=== PATIENT | female | born 1980 | race Caucasian/White ===

== ENCOUNTER → 2017-09-05 | Outpatient (CLI) | payer BC | END | disposition home or self-care (01) | LOC: LABWHC1 08:56 | PROVIDERS: ATTEND Otolaryngology | DX: J30.89 Other allergic rhinitis (principal) | CPT/HCPCS: 36415 ==

== ENCOUNTER 2022-02-15 08:15 | Observation (INO) | payer BC ==
[2022-02-15] MEDS ORDERED: HYDROmorphone 0.5 MG/0.5 ML SYRINGE IVP STA (08:34)
[2022-02-15] MEDS ORDERED: ONDANSETRON 4 MG/2 ML VIAL IVP PRN (08:41)
[2022-02-15] MEDS ORDERED: NALOXONE 0.4 MG/ML 1 ML VIAL IV PRN (08:41)
--- NOTE | 2022-02-15 08:41 | ED ---
Abdominal Pain HPI - General Chief Complaint: Abdominal Pain Stated Complaint: possible appendicitis Time Seen by Provider: 02/15/22 08:21 Source: patient, EMS, RN notes reviewed Mode of arrival: EMS Limitations: no limitations - History of Present Illness Initial Comments: This a 41-year-old female presents emergency Department as a transfer from [facility] for possible appendicitis. Patient states she woke up in the middle of the night with mid epigastric pain she stated that the pain increased along with nausea vomiting. Patient states that she had a CAT scan which showed evidence of appendicitis. Patient states that she was given Unasyn, pain meds. She still complains of moderate abdominal pain but states her nausea has improved no reported fever. No prior abdominal surgeries. Review of Systems ROS Statement: Those systems with pertinent positive or pertinent negative responses have been documented in the HPI. ROS Other: All systems not noted in ROS Statement are negative. Past Medical History Past Medical History: No Reported History History of Any Multi-Drug Resistant Organisms: None Reported Past Surgical History: Hysterectomy, Tubal Ligation Smoking Status: Vaper Past Alcohol Use History: Occasional Past Drug Use History: None Reported General Exam Limitations: no limitations General appearance: alert, in no apparent distress Head exam: Present: atraumatic, normocephalic, normal inspection Eye exam: Present: normal appearance, PERRL, EOMI. Absent: scleral icterus, conjunctival injection, periorbital swelling ENT exam: Present: normal exam, normal oropharynx, mucous membranes moist Neck exam: Present: normal inspection. Absent: tenderness, meningismus, lymphadenopathy Respiratory exam: Present: normal lung sounds bilaterally. Absent: respiratory distress, wheezes, rales, rhonchi, stridor Cardiovascular Exam: Present: regular rate, normal rhythm, normal heart sounds. Absent: systolic murmur, diastolic murmur, rubs, gallop, clicks GI/Abdominal exam: Present: soft, tenderness (Moderate mid abdominal with right lower quadrant), normal bowel sounds. Absent: distended, guarding, rebound, rigid Back exam: Absent: CVA tenderness (R), CVA tenderness (L) Neurological exam: Present: alert Skin exam: Present: warm, dry, intact, normal color. Absent: rash Course Vital Signs 02/15/22 08:18 Temperature 98.3 F Pulse Rate 72 Respiratory 18 Rate Blood Pressure 157/77 O2 Sat by Pulse 98 Oximetry Medical Decision Making - Medical Decision Making I did review prior studies, laboratory results patient will be continuing current antibiotics case discussed with Dr. Ramey patient will continue fluid hydration, be kept NPO, for observation and possible surgery. Disposition Clinical Impression: Abdominal pain, Nausea & vomiting, Appendicolith, Appendicitis Disposition: ADMITTED IP TO THIS HOSP Condition: Fair Referrals: Natacha Jeffries MD [Primary Care Provider] - 1-2 days Time of Disposition: 08:41
[2022-02-15] MEDS: SODIUM CHLORIDE 0.9% 1,000 ML IV SCH ×3 (09:01→16:38)
[2022-02-15] MEDS: PANTOPRAZOLE 40 MG/10 ML VIAL IV SCH (09:03)
[2022-02-15 09:08] LABS: Basophils % (A) 0 %; Eosinophils # (A) 0.1 k/uL (0-0.7); Eosinophils % (A) 1 %; HCT 38.4 % (34.0-46.0); HGB 12.4 gm/dL (11.4-16.0); Lymphocytes # (A) 0.5 k/uL (1.0-4.8); Lymphocytes % (A) 3 %; MCH 30.1 pg (25.0-35.0); MCHC 32.2 g/dL (31.0-37.0); MCV 93.3 fL (80.0-100.0); Mean Platelet Volume 6.6; Monocytes # (A) 0.5 k/uL (0-1.0); Monocytes % (A) 3 %; Neutrophils # (A) 14.5 k/uL (1.3-7.7); Neutrophils % (A) 92 %; Platelet Count 371 k/uL (150-450); RBC 4.12 m/uL (3.80-5.40); RDW 15.4 % (11.5-15.5); WBC 15.7 k/uL (3.8-10.6)
[2022-02-15 09:18] LABS: ALT 39 U/L (4-34); AST 29 U/L (14-36); African American GFR (CKD) >90 (>60 ml/min/1.73 sqM); Albumin 4.4 g/dL (3.5-5.0); Alkaline Phosphatase 81 U/L (38-126); Anion Gap 6 mmol/L; Blood Urea Nitrogen 12 mg/dL (7-17); Calcium 8.6 mg/dL (8.4-10.2); Carbon Dioxide 25 mmol/L (22-30); Chloride 107 mmol/L (98-107); Glucose 109 mg/dL (74-99); Non-African American GFR(CKD) >90 (>60 ml/min/1.73 sqM); Potassium 4.3 mmol/L (3.5-5.1); Sodium 138 mmol/L (137-145); Total Bilirubin 0.4 mg/dL (0.2-1.3); Total Protein 7.2 g/dL (6.3-8.2)
[2022-02-15] MEDS: HYDROmorphone 0.5 MG/0.5 ML SYRINGE IVP PRN ×4 (11:28→21:28)
[2022-02-15] MEDS: AMPICILLIN-SULBACTAM 3 GM in SODIUM CHLORIDE 0.9% 100 ML IVPB SCH ×2 (11:56→21:26)
[2022-02-15] MEDS: ACETAMINOPHEN IV (For NPO) 1,000 MG in EMPTY BAG 1 BAG IVPB SCH ×3 (12:44→23:28)
--- NOTE | 2022-02-15 12:55 | P.GSHP ---
History of Present Illness H&P Date: 02/15/22 CHIEF COMPLAINT: Abdominal pain HISTORY OF PRESENT ILLNESS: This is a 41-year-old female who presented to the emergency department as a transfer from [facility] for possible appendicitis. Patient reports that she has been having abdominal pain that started last night. She states that initially it started in her upper abdomen and had radiated to her back and then moved down towards the right lower quadrant. She was having nausea and vomiting. She graded her pain about a 9 out of 10. Denies any fever. Does report having some chills and sweats. At [place] she had a computed tomography scan without contrast that reported can't exclude appendicitis. Minimal thickening of the appendix noted. No surrounding inflammatory stranding noted. White count is not elevated at 15. She does complain of nausea. Pain is controlled with pain medication. Past surgical history includes a hysterectomy and tubal ligation. She's currently on antibiotics. PAST MEDICAL HISTORY: Heart murmur PAST SURGICAL HISTORY: See list. MEDICATIONS: See list. ALLERGIES: See list. SOCIAL HISTORY: No illicit drug use. REVIEW OF SYSTEMS: CONSTITUTIONAL: Denies fever or chills. HEENT: Denies blurred vision, vision changes, or eye pain. Denies hemoptysis CARDIOVASCULAR: Denies chest pain or pressure. RESPIRATORY: No shortness of breath. GASTROINTESTINAL: See HPI for pertinent findings HEMATOLOGIC: Denies bleeding disorders. GENITOURINARY: Denies any blood in urine or increased urinary frequency. SKIN: Denies pruitis. Denies rash. PHYSICAL EXAM: VITAL SIGNS: Reviewed GENERAL: Well-developed in no acute distress. HEENT: No sclera icterus. Extraocular movements grossly intact. Moist buccal mucosa. Head is atraumatic, normocephalic. No nasal drainage. ABDOMEN: Soft. Nondistended. Tenderness to palpation in the right lower quadrant NEUROLOGIC: Alert and oriented. Cranial nerves II through XII grossly intact. LABORATORY DATA: WBC is 15.7 Hgb 12.4 plt 371 Sodium 138 potassium 4.3 creatinine 0.70 AST 29 ALT 39 alk phos 81 total bilirubin 0.4 Lipase at [place] normal IMAGING: ASSESSMENT: 1. Upper abdominal pain has now moved down to the right lower quadrant with minimal thickening of the appendix noted on computed tomography scan. Can't exclude appendicitis 2. Nausea and vomiting 3. Leukocytosis PLAN: -Patient scheduled for Laparoscopic appendectomy tomorrow, 02/16/[address] Ramey -Continue IV antibiotics -Add IV Tylenol and Toradol for pain -Continue IV fluids -Continue antiemetics as needed -Consult medicine service for medical management -GI prophylaxis Protonix and DVT prophylaxis subcu Heparin Physician Service Operations Manager note has been reviewed by physician. Signing provider agrees with the documented findings, assessment, and plan of care. Past Medical History Past Medical History: No Reported History History of Any Multi-Drug Resistant Organisms: None Reported Past Surgical History: Hysterectomy, Tubal Ligation Past Anesthesia/Blood Transfusion Reactions: No Reported Reaction Past Psychological History: No Psychological Hx Reported Smoking Status: Vaper Past Alcohol Use History: Occasional Past Drug Use History: None Reported Medications and Allergies Home Medications Medication Instructions Recorded Confirmed Type Azelastine HCl [Astepro] 1 spray EA NOSTRIL BID PRN 02/15/22 02/15/22 History Fluticasone Nasal [place] [Flonase 2 spray EA NOSTRIL DAILY PRN 02/15/22 02/15/22 History Nasal [place]] Saxenda 18mg/3ml See Taper SQ DIRECTED 02/15/22 02/15/22 History busPIRone HCl [Buspar] 5 mg PO BID 02/15/22 02/15/22 History traZODone HCL [Desyrel] 50 mg PO HS 02/15/22 02/15/22 History Allergies Allergy/AdvReac Type Severity Reaction Status Date / Time amoxicillin AdvReac Unknown Verified 02/15/22 09:00 Childhood cephalexin [From Keflex] AdvReac Unknown Verified 02/15/22 09:00 Childhood clarithromycin [From Biaxin] AdvReac Unknown Verified 02/15/22 09:00 Childhood Penicillins AdvReac Unknown Verified 02/15/22 09:00 Childhood Sulfa (Sulfonamide AdvReac Unknown Verified 02/15/22 09:00 Antibiotics) Childhood Surgical - Exam Vital Signs Temp Pulse Resp BP Pulse Ox 98.3 F 72 18 157/77 98 02/15/22 08:18 02/15/22 08:18 02/15/22 08:18 02/15/22 08:18 02/15/22 08:18 Results - Labs 02/15/22 08:58 02/15/22 08:58 Abnormal Lab Results - Last 24 Hours (Table) 02/15/22 02/15/22 Range/Units 08:58 08:58 WBC 15.7 H (3.8-10.6) k/uL Neutrophils # 14.5 H (1.3-7.7) k/uL Lymphocytes # 0.5 L (1.0-4.8) k/uL Glucose 109 H (74-99) mg/dL ALT 39 H (4-34) U/L Diabetes panel 02/15/22 Range/Units 08:58 Sodium 138 (137-145) mmol/L Potassium 4.3 (3.5-5.1) mmol/L Chloride 107 (98-107) mmol/L Carbon Dioxide 25 (22-30) mmol/L BUN 12 (7-17) mg/dL Creatinine 0.70 (0.52-1.04) mg/dL Glucose 109 H (74-99) mg/dL Calcium 8.6 (8.4-10.2) mg/dL AST 29 (14-36) U/L ALT 39 H (4-34) U/L Alkaline Phosphatase 81 (38-126) U/L Total Protein 7.2 (6.3-8.2) g/dL Albumin 4.4 (3.5-5.0) g/dL Calcium panel 02/15/22 Range/Units 08:58 Calcium 8.6 (8.4-10.2) mg/dL Albumin 4.4 (3.5-5.0) g/dL Pituitary panel 02/15/22 Range/Units 08:58 Sodium 138 (137-145) mmol/L Potassium 4.3 (3.5-5.1) mmol/L Chloride 107 (98-107) mmol/L Carbon Dioxide 25 (22-30) mmol/L BUN 12 (7-17) mg/dL Creatinine 0.70 (0.52-1.04) mg/dL Glucose 109 H (74-99) mg/dL Calcium 8.6 (8.4-10.2) mg/dL Adrenal panel 02/15/22 Range/Units 08:58 Sodium 138 (137-145) mmol/L Potassium 4.3 (3.5-5.1) mmol/L Chloride 107 (98-107) mmol/L Carbon Dioxide 25 (22-30) mmol/L BUN 12 (7-17) mg/dL Creatinine 0.70 (0.52-1.04) mg/dL Glucose 109 H (74-99) mg/dL Calcium 8.6 (8.4-10.2) mg/dL Total Bilirubin 0.4 (0.2-1.3) mg/dL AST 29 (14-36) U/L ALT 39 H (4-34) U/L Alkaline Phosphatase 81 (38-126) U/L Total Protein 7.2 (6.3-8.2) g/dL Albumin 4.4 (3.5-5.0) g/dL
[2022-02-15] MEDS ORDERED: AZELASTINE 137MCG/SPRAY EA NOSTRIL PRN (16:23)
[2022-02-15] MEDS ORDERED: FLUTICASONE 50MCG/SPRAY NASAL 16GM EA NOSTRIL PRN (16:23)
[2022-02-15] MEDS: KETOROLAC 15 MG/ML 1 ML VIAL IVP PRN (17:20)
--- NOTE | 2022-02-15 19:09 | CONS ---
CONSULTATION DATE OF SERVICE: 02/15/2022 REASON FOR CONSULTATION: Advice regarding elevated WBC and other medical issues, requested by Surgery. HISTORY OF PRESENT ILLNESS: This 41-year-old woman who was previously healthy was complaining of abdominal pain. Patient went to an outside hospital. White count was elevated and because of suspicion of acute appendicitis, patient was sent to [facility]. White count is 15.7 at this time. The pain actually started initially in the epigastric area and subsequently localized in the right lower quadrant area. There is no history of any fever, rigor or chills. PAST MEDICAL HISTORY: No significant cardiorespiratory illness except vaping. MEDICATIONS: Home medications are reviewed and include Desyrel. Doses and the rest of the medications are reviewed. ALLERGIES: REVIEWED. They include AMOXICILLIN. FAMILY HISTORY: No history of heart disease or strokes in the family. SOCIAL HISTORY: Vaping. Occasional alcohol. REVIEW OF SYSTEMS: Fourteen-point review of systems negative except as mentioned earlier. PHYSICAL EXAMINATION: Pulse 69, blood pressure 112/70, respiration 18. HEENT: Conjunctivae normal. NECK: No jugular venous distention. CARDIOVASCULAR: S1, S2 muffled. RESPIRATION: Breath sounds diminished at the bases. ABDOMEN: Soft. No guarding. No rigidity. Mild tenderness in the right lower quadrant. No ascites. No mass palpable. LEGS: No edema. No swelling. NERVOUS SYSTEM: Higher functions as mentioned earlier. Moves all 4 limbs. No focal motor or sensory deficit. SKIN: No ulcer, rash, bleeding. JOINTS: No active deforming arthropathy. LABS: Reviewed. WBC 15.7. ASSESSMENT: 1. Right lower quadrant abdominal pain; possible acute appendicitis. 2. Increased white count. 3. Mild elevation of ALT. RECOMMENDATIONS AND DISCUSSION: In this 41-year-old woman who presented with features of lower abdominal pain was started on empiric antibiotics. I would recommend continuing the pain medications, IV fluids. Closely follow with Dr. Ramey. Prognosis guarded because of multiple complex medical issues. Further recommendations to follow. MMODL / IJN: [id number] /
[2022-02-15] MEDS: HEPARIN SODIUM,PORCINE/PF 5,000 UNIT/0.5 ML SYRINGE SQ SCH (21:28)
[2022-02-15] MEDS: busPIRone HCl 5 MG TAB PO SCH (21:28)
[2022-02-15] MEDS: traZODone HCL 50 MG TAB PO SCH (22:02)
[2022-02-16] MEDS: HYDROmorphone 0.5 MG/0.5 ML SYRINGE IVP PRN ×6 (01:45→23:45)
[2022-02-16] MEDS: AMPICILLIN-SULBACTAM 3 GM in SODIUM CHLORIDE 0.9% 100 ML IVPB SCH ×2 (03:18→12:08)
[2022-02-16] MEDS: ACETAMINOPHEN IV (For NPO) 1,000 MG in EMPTY BAG 1 BAG IVPB SCH (05:03)
[2022-02-16] MEDS: SODIUM CHLORIDE 0.9% 1,000 ML IV SCH ×3 (05:04→14:27)
[2022-02-16 06:07] LABS: Basophils # (A) 0.1 k/uL (0-0.2); Basophils % (A) 0 %; Eosinophils # (A) 0.1 k/uL (0-0.7); Eosinophils % (A) 1 %; HCT 35.2 % (34.0-46.0); HGB 11.4 gm/dL (11.4-16.0); Lymphocytes # (A) 0.8 k/uL (1.0-4.8); Lymphocytes % (A) 4 %; MCH 30.6 pg (25.0-35.0); MCHC 32.4 g/dL (31.0-37.0); MCV 94.5 fL (80.0-100.0); Monocytes # (A) 0.3 k/uL (0-1.0); Monocytes % (A) 2 %; Neutrophils # (A) 16.3 k/uL (1.3-7.7); Neutrophils % (A) 93 %; Platelet Count 296 k/uL (150-450); RBC 3.73 m/uL (3.80-5.40); RDW 15.5 % (11.5-15.5); WBC 17.6 k/uL (3.8-10.6)
[2022-02-16 06:25] LABS: ALT 27 U/L (4-34); AST 26 U/L (14-36); African American GFR (CKD) >90 (>60 ml/min/1.73 sqM); Albumin 3.5 g/dL (3.5-5.0); Albumin/Globulin Ratio 1.4; Alkaline Phosphatase 87 U/L (38-126); Anion Gap 5 mmol/L; Blood Urea Nitrogen 7 mg/dL (7-17); Calcium 7.8 mg/dL (8.4-10.2); Carbon Dioxide 25 mmol/L (22-30); Chloride 102 mmol/L (98-107); Globulin 2.5 g/dL; Glucose 98 mg/dL (74-99); Non-African American GFR(CKD) 86 (>60 ml/min/1.73 sqM); Potassium 3.7 mmol/L (3.5-5.1); Sodium 132 mmol/L (137-145); Total Bilirubin 0.8 mg/dL (0.2-1.3)
[2022-02-16] MEDS: HEPARIN SODIUM,PORCINE/PF 5,000 UNIT/0.5 ML SYRINGE SQ SCH ×2 (07:29→20:37)
[2022-02-16] MEDS: busPIRone HCl 5 MG TAB PO SCH ×2 (08:26→20:37)
[2022-02-16] MEDS: KETOROLAC 15 MG/ML 1 ML VIAL IVP PRN ×2 (08:26→23:28)
[2022-02-16] MEDS: PANTOPRAZOLE 40 MG/10 ML VIAL IV SCH (08:26)
[2022-02-16] MEDS ORDERED: IV FLUID CONTINUATION 1,000 ML IV ONE ×2 (11:34)
[2022-02-16] MEDS ORDERED: LACTATED RINGERS 1,000 ML IV ONE ×2 (11:37)
[2022-02-16] MEDS ORDERED: HEPARIN SODIUM,PORCINE 5,000 UNIT/ML 1 ML VIAL SQ ONE (11:45)
[2022-02-16] MEDS ORDERED: fentaNYL (PF) 50 MCG/ML 2 ML AMP ONE (11:51)
[2022-02-16] MEDS ORDERED: KETOROLAC 15 MG/ML 1 ML VIAL ONE (11:51)
[2022-02-16] MEDS ORDERED: MIDAZOLAM 2 MG/2 ML VIAL ONE (11:51)
[2022-02-16] MEDS ORDERED: LIDOCAINE 2% INJ 20 MG/ML (2 ML VIAL) ONE (11:51)
[2022-02-16] MEDS ORDERED: GLYCOPYRROLATE 0.2 MG/ML 2 ML VIAL ONE (11:51)
[2022-02-16] MEDS ORDERED: ROCURONIUM 10 MG/ML (5 ML VIAL) IV ONE (11:51)
[2022-02-16] MEDS ORDERED: NEOSTIGMINE 1 MG/ML 10 ML VIAL ONE (11:51)
[2022-02-16] MEDS ORDERED: SUCCINYLCHOLINE CHLORIDE 100 MG/5 ML SYR IV ONE (11:51)
[2022-02-16] MEDS ORDERED: PROPOFOL 10 MG/ML 20 ML VIAL IV ONE (11:51)
[2022-02-16] MEDS ORDERED: BUPIVACAIN-EPI 0.25%-1:200,000 30 ML VIAL SQ ONE (12:16)
--- NOTE | 2022-02-16 12:30 | P.OP ---
Date of Procedure: 02/16/22 Preoperative Diagnosis: Acute appendicitis Postoperative Diagnosis: Acute appendicitis Procedure(s) Performed: Laparoscopic appendectomy Anesthesia: GILMA Surgeon: Sameer Ramey Pathology: other (Appendix) Condition: stable Disposition: PACU Description of Procedure: HarThe patient's placed on the operating table in the supine position. The patient received general anesthesia. The abdomen was prepped and draped in the usual sterile fashion. The skin was anesthetized 1% local Xylocaine at the trocar sites. Using an 11 blade the skin was incised at the umbilicus. The umbilicus was grasped with a Nickie clamp and then a Veress needle was placed into the peritoneal cavity. Position of the Veress needle was confirmed with positive drop test. After adequate insufflation a 5 mm trocar was placed into the peritoneal cavity. The abdomen was further insufflated. And then the l aparoscope was placed in the peritoneal cavity. Next a 5 mm trocar was placed in the midline suprapubic position. And then a 10 mm trocar was placed in the midline epigastric position. The patient was rotated with the right side up and in Trendelenburg. The appendix was visualized. The appendix appeared to be inflamed. The appendix was grasped and then using the Harmonic scissors the mesoappendix was divided. A PDS Endoloop was then placed around the base of the appendix. And then the appendix was divided using Harmonic scissors. The appendix was placed into an Endo Catch and brought out through the 10 mm trocar site. The abdomen was irrigated. There is no bleeding seen. The trochars withdrawn. The skin was closed interrupted 3-0 Monocryl suture. Dermabond dressing was applied. Patient was sent to recovery room in stable condition.
[2022-02-16] MEDS ORDERED: HYDROmorphone 1 MG/ML 1 ML SYRINGE IVP PRN (12:31)
[2022-02-16] MEDS ORDERED: ONDANSETRON 4 MG TAB PO PRN (12:31)
[2022-02-16] MEDS: HYDROmorphone 0.5 MG/0.5 ML SYRINGE IVP ONE ×2 (13:03→13:30)
[2022-02-16] MEDS: PIPERACILLIN-TAZOBACTAM 3.375 GM in SODIUM CHLORIDE 0.9% 100 ML IVPB SCH ×2 (17:14→23:30)
--- NOTE | 2022-02-16 19:53 | PN ---
PROGRESS NOTE DATE OF SERVICE: 02/16/2022 This 41-year-old woman who was admitted with acute appendicitis had laparoscopic appendectomy. The patient complains of shivering at this time. This morning the white count was elevated up to 17 from 15. The patient is on Unasyn, which the patient is tolerating well despite an apparent history of a penicillin allergy. No chest pain. No palpitation. PHYSICAL EXAMINATION: Pulse is 101, blood pressure 106/56, respiration 20. HEENT: Conjunctivae normal. NECK: No jugular venous distention. CARDIOVASCULAR: S1, S2 muffled. RESPIRATION: Breath sounds diminished at the bases. ABDOMEN: Soft. Status post surgery. Postoperative tenderness. No guarding or rigidity. LEGS: No edema. No swelling. NERVOUS SYSTEM: No focal deficit. LABS: WBC 17.7. Other labs are noted. ASSESSMENT: 1. Acute appendicitis, status post laparoscopic appendectomy. 2. Increased white count. 3. Mild elevation of ALT, present on admission. RECOMMENDATIONS AND DISCUSSION: I recommend to continue current medications, continue symptomatic treatment. I would recommend changing the antibiotics to Zosyn and Flagyl and obtain blood cultures. Repeat labs. Closely follow with Surgery. Further recommendations to follow. MMODL / IJN: [id number] /
[2022-02-16] MEDS ORDERED: ACETAMINOPHEN TAB 325 MG TAB PO PRN (20:17)
[2022-02-16] MEDS: traZODone HCL 50 MG TAB PO SCH ×2 (20:37→20:43)
[2022-02-16] MEDS: metroNIDAZOLE-NS PMX 500 MG in SALINE 1 100ML.BAG IVPB SCH (23:29)
[2022-02-17] MEDS: SODIUM CHLORIDE 0.9% 1,000 ML IV SCH ×2 (01:36→10:41)
[2022-02-17] MEDS: HYDROmorphone 0.5 MG/0.5 ML SYRINGE IVP PRN ×2 (04:30→12:05)
[2022-02-17 07:33] VITALS: PULSE 67; RESP 16
[2022-02-17] MEDS: metroNIDAZOLE-NS PMX 500 MG in SALINE 1 100ML.BAG IVPB SCH (07:41)
[2022-02-17] MEDS: busPIRone HCl 5 MG TAB PO SCH (07:42)
[2022-02-17] MEDS: HYDROcodone/APAP 7.5-325MG 1 EACH TAB PO PRN ×2 (07:42→15:00)
[2022-02-17] MEDS: HEPARIN SODIUM,PORCINE/PF 5,000 UNIT/0.5 ML SYRINGE SQ SCH (07:42)
[2022-02-17] MEDS: PANTOPRAZOLE 40 MG/10 ML VIAL IV SCH (07:43)
[2022-02-17 09:15] LABS: African American GFR (CKD) 92.7 (60.0-200.0); Anion Gap 9.8 mmol/L (10.00-18.00); BUN/Creat Ratio 6.56 Ratio (12.00-20.00); Blood Urea Nitrogen 5.9 mg/dL (9.0-27.0); Calcium 7.2 mg/dL (8.7-10.3); Carbon Dioxide 23.2 mmol/L (20.0-27.5); Potassium 3.1 mmol/L (3.5-5.5)
[2022-02-17] MEDS: PIPERACILLIN-TAZOBACTAM 3.375 GM in SODIUM CHLORIDE 0.9% 100 ML IVPB SCH (09:57)
[2022-02-17] MEDS ORDERED: SODIUM CHLORIDE 0.9% 1,000 ML IV ONE ×2 (10:35→13:42)
[2022-02-17] MEDS ORDERED: POTASSIUM CHLORIDE ER 20 MEQ TAB.ER PO STA (10:36)
[2022-02-17] MEDS: KETOROLAC 15 MG/ML 1 ML VIAL IVP PRN (10:40)
[2022-02-17 10:46] LABS: Basophils # (A) 0.03 X 10*3/uL (0.00-0.10); Basophils % (A) 0.5 %; Eosinophils # (A) 0.15 X 10*3/uL (0.04-0.35); Eosinophils % (A) 2.6 %; HCT 30.3 % (37.2-46.3); HGB 9.7 g/dL (12.0-15.0); Immature Grans, Automated 0.3 %; Lymphocytes # (A) 1.01 X 10*3/uL (0.90-5.00); Lymphocytes % (A) 17.2 %; MCH 29.9 pg (27.0-32.0); MCV 93.5 fL (80.0-97.0); Mean Platelet Volume 9.8 fL (9.5-12.2); Monocytes # (A) 0.37 X 10*3/uL (0.20-1.00); Monocytes % (A) 6.3 %; NRBC Per 100 WBC 0 /100 WBCS (0.0-0.0); Neutrophils # (A) 4.28 X 10*3/uL (1.80-7.70); Neutrophils % (A) 73.1 %; Platelet Count 197 X 10*3/uL (140-440); RBC 3.24 X 10*6/uL (4.10-5.20); RDW 16.4 % (11.5-14.5); WBC 5.86 X 10*3/uL (4.50-10.00)
[2022-02-17 11:09] LABS: Appearance,Urine Clear (Clear); Bilirubin,Urine Negative (Negative); Blood,Urine Negative (Negative); Color,Urine Light Yellow; Glucose,Urine (UA) Negative (Negative); Ketones,Urine Negative (Negative); Leukocyte Esterase,Urine Negative (Negative); Nitrite,Urine Negative (Negative); Protein,Urine Negative (Negative); Specific Gravity,Urine 1.004 (1.001-1.035); Urobilinogen,Urine <2.0 mg/dL (<2.0)
[2022-02-17] MEDS ORDERED: KETOROLAC 15 MG/ML 1 ML VIAL IVP SCH (12:00)
[2022-02-17] MEDS ORDERED: SIMETHICONE 40 MG/0.6 ML DROPS 2,000 MG/30 ML BOTTLE PO SCH (13:00)
[2022-02-17 13:58] VITALS: BP 93/61; TEMP 98
--- NOTE | 2022-02-17 14:36 | P.DS ---
Providers Date of admission: 02/15/22 08:44 Expected date of discharge: 02/17/22 Attending physician: Sameer Baca Consults: 02/15/22 12:49 Consult Physician Routine Consulting Provider: Sreekanth Gallegos Consult Reason/Comments: medical management Do you want consulting provider notified?: Yes Primary care physician: Natacha Jeffries Hospital Course: Discharge diagnosis 1. Acute appendicitis status post laparoscopic appendectomy Hospital course This is a 41-year-old female who presented to the emergency department as a transfer from [facility] for possible appendicitis. Patient reports that she has been having abdominal pain that started last night. She states that initially it started in her upper abdomen and had radiated to her back and then moved down towards the right lower quadrant. She was having nausea and vomiting. At [place] she had a computed tomography scan without contrast that reported can't exclude appendicitis. Minimal thickening of the appendix noted. No surrounding inflammatory stranding noted. White count is not elevated at 15. Patient status post laparoscopic appendectomy. Initially this morning patient was complaining of abdominal pain feeling nauseated and having headache. She reports that her urine output had been dark and on the lower side. She received fluid bolus. Urine output and headache have improved. She also had been hypotensive and had a temp of 102 last night. Patient given Tylenol for the fever can she's received IV fluids at increase rate and has been receiving IV antibiotics. This afternoon upon reevaluation with Dr. Baca. Patient's pain is better controlled. She is currently afebrile. Her urine output has improved. Her incision is a clean dry and intact. Her urinalysis shows no evidence of infection. Patient is tolerating diet. Patient seen and examined with Dr. baca. Per Dr. Baca patient is stable for discharge. He is recommending discharge home with antibiotics. And for her to received a 1 L fluid bolus before discharge. Please refer to chart for any further details. Physician Rip And Groove Machine Operator note has been reviewed by physician. Signing provider agrees with the documented findings, assessment, and plan of care. Patient Condition at Discharge: Stable Plan - Discharge Summary Discharge Rx Participant: No New Discharge Prescriptions: New Ibuprofen [Motrin] 600 mg PO Q8HR PRN #30 tab PRN Reason: Pain Simethicone 40 mg/0.6 ml Drops [Mylicon Drops] 40 mg PO QID ml oxyCODONE HCL [OxyIR] 5 mg PO Q6H PRN 3 Days #12 tab PRN Reason: Pain metroNIDAZOLE [Flagyl] 500 mg PO TID #30 tab Acetaminophen Tab [Tylenol Tab] 650 mg PO Q4H PRN #30 tablet PRN Reason: Pain Levofloxacin [Levaquin] 500 mg PO DAILY 10 Days #10 tab Ondansetron Odt [Zofran Odt] 4 mg PO Q8HR PRN #9 tab PRN Reason: Nausea Continue traZODone HCL [Desyrel] 50 mg PO HS busPIRone HCl [Buspar] 5 mg PO BID Fluticasone Nasal [place] [Flonase Nasal [place]] 2 spray EA NOSTRIL DAILY PRN PRN Reason: Allergy Symptoms Saxenda 18mg/3ml See Taper SQ DIRECTED Azelastine HCl [Astepro] 1 spray EA NOSTRIL BID PRN PRN Reason: Allergy Symptoms Discharge Medication List Azelastine HCl [Astepro] 1 spray EA NOSTRIL BID PRN 02/15/22 [History] Fluticasone Nasal [place] [Flonase Nasal [place]] 2 spray EA NOSTRIL DAILY PRN 02/15/22 [History] Saxenda 18mg/3ml See Taper SQ DIRECTED 02/15/22 [History] busPIRone HCl [Buspar] 5 mg PO BID 02/15/22 [History] traZODone HCL [Desyrel] 50 mg PO HS 02/15/22 [History] Acetaminophen Tab [Tylenol Tab] 650 mg PO Q4H PRN #30 tablet 02/17/22 [Rx] Ibuprofen [Motrin] 600 mg PO Q8HR PRN #30 tab 02/17/22 [Rx] Levofloxacin [Levaquin] 500 mg PO DAILY 10 Days #10 tab 02/17/22 [Rx] Ondansetron Odt [Zofran Odt] 4 mg PO Q8HR PRN #9 tab 02/17/22 [Rx] Simethicone 40 mg/0.6 ml Drops [Mylicon Drops] 40 mg PO QID ml 02/17/22 [Rx] metroNIDAZOLE [Flagyl] 500 mg PO TID #30 tab 02/17/22 [Rx] oxyCODONE HCL [OxyIR] 5 mg PO Q6H PRN 3 Days #12 tab 06/29/22 [Rx] Follow up Appointment(s)/Referral(s): Natacha Jeffries MD [Primary Care Provider] - 1-2 days Sameer Baca MD [STAFF PHYSICIAN] - 1 Week Activity/Diet/Wound Care/Special Instructions: No driving while taking OxyIR No lifting over 10 pounds Shower daily. No soaking or tub baths for 2 weeks Very light activity until you are reevaluated at your follow up appointment with your surgeon Discharge Disposition: HOME SELF-CARE
--- NOTE | 2022-02-17 16:21 | P.PN ---
Subjective Progress Note Date: 02/17/22 This is a 41-year-old female who was admitted under surgical services for acute appendicitis status post laparoscopic appendectomy and is being closely monitored. Patient having fevers and maintained on IV Zosyn and Flagyl. WBC has normalized and BMP within normal limits. Potassium mildly low at 3.1 and recommend replacement per protocol. Recommend obtaining urinalysis and patient is scheduled to receive a fluid bolus. Patient reports to eating very little although tolerating and slowly advancing diet. Patient reports belching with some minimal gas and denies any bowel movement at this time. Patient denies nausea or vomiting, denies chest pain, and denies shortness of breath. Blood pressure is also on the lower side. Patient denies any dizziness or lightheadedness just generalized discomfort in the abdomen. Encouraged incentive spirometer at least 10 times every hour while awake and also encouraged increased activity as tolerated. Review of systems: Constitutional: No reports of fatigue, reports of fever, or chills Cardiovascular: No reports of chest pain or palpitations Respiratory: No reports of shortness of breath or cough GI: reports of occasional nausea, no reports of of vomiting, patient reports a mole gas and no bowel movement as of yet : No reports of dysuria or retention Neurovascular: No reports of generalized weakness All medications have been reviewed PHYSICAL EXAMINATION: GENERAL: The patient is alert and oriented x4, Well developed, well nourished. HEENT: Pupils are round and equally reacting to light. EOMI. no scleral icterus. No conjunctival pallor. Normocephalic, atraumatic. No pharyngeal erythema. No thyromegaly. CARDIOVASCULAR: S1 and S2 muffled PULMONARY: diminished breath sounds bilaterally with no wheezing or rhonchi noted. ABDOMEN: soft. tender on exam. non-distended, sluggish bowel sounds. No palpable organomegaly. MUSCULOSKELETAL: No joint swelling or deformity. EXTREMITIES: No cyanosis, clubbing, or pedal edema. NEUROLOGICAL: Gross neurological examination did not reveal any focal deficits. SKIN: No rashes. Assessment: Acute appendicitis, status post laparoscopic appendectomy Increased white count, improved Mild elevation of ALT, present on admission GI prophylaxis DVT prophylaxis Full code Plan: Recommend to continue with current medications and management per surgical services. Patient continued to have fevers throughout the night and is currently afebrile and white blood count has normalized and patient is maintained on IV antibiotics and recommend to continue. Patient also mildly low blood pressure and recommend fluid bolus and patient also states she feels somewhat dehydrated with not much oral intake as of yet. Patient is tolerating diet and will be advanced this afternoon. Recommend follow up with primary care provider and also encouraged incentive spirometer use at least 10 times every hour while awake. Patient inquiring about returning to clinicals and instructed the patient to follow-up with primary care provider in general surgery prior to return. Encouraged oral intake and increased activity as tolerated. We will continue to follow with surgery during hospitalization. Thank you for this consultation. Further recommendations to follow based on the clinical course of the patient. Possible discharge later today. The impression and plan of care has been dictated by Tavia Kim, nurse practitioner as directed. MD Jeromy I have performed a history and examination and MDM of this patient, discussed the same with the dictator, and agree with the dictator's assessment and plan as written ,documented as a scribe. Based on total visit time, I have performed more than 50% of the visit. Any additional findings or plans will be noted. Objective - Vital Signs Vital signs: Vital Signs Temp 99.9 F H 02/17/22 07:32 Pulse 67 02/17/22 07:32 Resp 16 02/17/22 07:32 BP 92/57 02/17/22 07:32 Pulse Ox 100 02/17/22 07:32 FiO2 Intake & Output 02/16/22 02/17/22 02/17/22 18:59 06:59 18:59 Intake Total 950 Output Total 5 Balance 945 Weight 77.111 kg Intake: IV 950 Output: Estimated Blood Loss 5 Other: Voiding Method Toilet Toilet # Voids 1 1 - Labs CBC & Chem 7: 02/17/22 06:24 02/17/22 06:24 Labs: Microbiology - Last 24 Hours (Table) 02/16/22 05:21 Blood Culture - Preliminary Blood No Growth after 24 hours
== END 2022-02-17 15:56 | disposition home or self-care (01) ==
LOC: EC 08:15 → 6NMEDSUR 08:44
PROVIDERS: ADMIT Surgery; ATTEND Surgery
DX: K35.80 Unspecified acute appendicitis (principal); Z90.710 Acquired absence of both cervix and uterus; Z98.51 Tubal ligation status; F17.290 Nicotine dependence, other tobacco product, uncomplicated; Z79.899 Other long term (current) drug therapy; Z88.1 Allergy status to other antibiotic agents; Z88.0 Allergy status to penicillin; Z88.2 Allergy status to sulfonamides
CPT/HCPCS: 96376 ×2; 96365; 96372; 96375 ×2; 99285; 36415; 88304; 80053 ×2; 80048; 83605; 85025 ×3; 81003; 87040; 44970; G0378 ×3; J2543 ×2; J2250; J1644 ×4; J2710; J2405; J3010; J0295 ×2; J0131 ×2; J1885 ×3; J0330; J2704; C9113 ×3; J1170 ×3; J2001